=== PATIENT | male | born 1945 | race Caucasian/White ===

== ENCOUNTER → 2020-11-13 | Outpatient (CLI) | payer MEDICARE | END | disposition home or self-care (01) | LOC: LABWHC1 16:55 | PROVIDERS: ATTEND Internal Medicine | DX: Z20.822 Contact with and (suspected) exposure to COVID-19 (principal) | CPT/HCPCS: U0003; C9803 ==

== ENCOUNTER → 2022-07-25 | Outpatient (CLI) | payer MEDICARE | END | disposition home or self-care (01) | LOC: LABWHC1 14:30 | PROVIDERS: ATTEND Internal Medicine | DX: Z01.812 Encounter for preprocedural laboratory examination (principal) | CPT/HCPCS: 36415; 85730 ==

== ENCOUNTER → 2024-01-05 | Outpatient (CLI) | payer MEDICARE ==
--- NOTE | 2024-01-05 22:06 | CA ---
Transthoracic Echo Report Name: Matt Crabtree Age: 78 Gender: M : 1945 Exam Date: 01/05/2024 13:08 Exam Location: [facility] Ht (in): 69 Wt (lb): 190 Ordering Physician: Tavon Cast DO Attending/Referring Phys: Tavon Cast DO Drug Safety Physician Elo Hadleyrupa RDCS Procedure CPT: Indications: R01.1 Murmur Cardiac Hx: Technical Quality: Contrast 1: Total Dose (mL): Contrast 2: Total Dose (mL): MEASUREMENTS (Male / Female) Normal Values 2D ECHO LV Diastolic Diameter PLAX 4.7 cm 4.2 - 5.9 / 3.9 - 5.3 cm LV Systolic Diameter PLAX 2.9 cm IVS Diastolic Thickness 0.8 cm 0.6 - 1.0 / 0.6 - 0.9 cm LVPW Diastolic Thickness 1.3 cm 0.6 - 1.0 / 0.6 - 0.9 cm LV Relative Wall Thickness 0.4 LVOT Diameter 1.9 cm Aortic Root Diameter 2.5 cm LA Systolic Diameter LX 4.8 cm 3.0 - 4.0 / 2.7 - 3.8 cm LV Diastolic Volume MOD BP 59.9 cm??? 67 - 155 / 56 - 104 cm??? LV Systolic Volume MOD BP 25.4 cm??? - 58 / 19 - 49 cm??? LV Ejection Fraction MOD BP 57.6 % >= 55 % LV Cardiac Index MOD BP 1070.0 cm???/min???m??? LV Diastolic Volume MOD 4C 66.6 cm??? LV Systolic Volume MOD 4C 31.4 cm??? LV Ejection Fraction MOD 4C 52.8 % LV Cardiac Index MOD 4C 1088.2 cm???/min???m??? LV Diastolic Length 4C 6.6 cm LV Systolic Length 4C 5.6 cm LV Diastolic Volume MOD 2C 53.9 cm??? LV Systolic Volume MOD 2C 19.7 cm??? LV Ejection Fraction MOD 2C 63.4 % LV Cardiac Index MOD 2C 1059.6 cm???/min???m??? LV Diastolic Length 2C 6.6 cm LV Systolic Length 2C 5.2 cm LA Volume 65.8 cm??? 18 - 58 / 22 - 52 cm??? LA Volume Index 31.8 cm???/m??? 16 - 28 cm???/m??? DOPPLER AV Peak Velocity 168.0 cm/s AV Peak Gradient 11.3 mmHg AV Mean Velocity 115.9 cm/s AV Mean Gradient 5.9 mmHg AV Velocity Time Integral 33.7 cm AI Peak Velocity 400.9 cm/s AI Peak Gradient 64.3 mmHg AI Pressure Half Time 437.2 ms LVOT Peak Velocity 147.9 cm/s LVOT Peak Gradient 8.8 mmHg LVOT Velocity Time Integral 29.8 cm LVOT Stroke Volume 82.5 cm??? LVOT Stroke Volume Index 40.8 ml/m??? LVOT Cardiac Index 2553.7 cm???/min???m??? AV Area Cont Eq vti 2.4 cm??? AV Area Cont Eq pk 2.4 cm??? Mitral E Point Velocity 82.6 cm/s Mitral A Point Velocity 74.5 cm/s Mitral E to A Ratio 1.1 MV Deceleration Time 304.9 ms MV E' Velocity 8.5 cm/s Mitral E to MV E' Ratio 9.7 TR Peak Velocity 214.1 cm/s TR Peak Gradient 18.3 mmHg PV Peak Velocity 78.1 cm/s PV Peak Gradient 2.4 mmHg FINDINGS Left Ventricle Left ventricular ejection fraction is estimated at 50-55 %. Normal left ventricular wall motion. No obvious regional wall motion abnormalities. Right Ventricle Normal right ventricular size and function. Right ventricular systolic pressure estimated at 31.01 mmhg. Right Atrium Normal right atrial size. Left Atrium Mild left atrial dilatation. Mitral Valve Trace mitral regurgitation. Aortic Valve Mild aortic regurgitation. Tricuspid Valve Trace to mild tricuspid regurgitation. Pulmonic Valve Trace pulmonic regurgitation. Pericardium No pericardial effusion. Aorta Normal size aortic root. CONCLUSIONS Left ventricular ejection fraction is estimated at 50-55 %. No obvious regional wall motion abnormalities. Normal right ventricular size and function. RVSP 31 mmHg Mild left atrial dilatation. Previewed by: Dr Leander Roberts (Electronically Signed) Final Date: 05 January 2024 22:06
== END | disposition home or self-care (01) ==
LOC: RADECHMAIN 12:48
PROVIDERS: ATTEND Internal Medicine
DX: R01.1 Cardiac murmur, unspecified (principal)
CPT/HCPCS: 93306

== ENCOUNTER → 2024-04-16 | Outpatient (CLI) | payer MEDICARE ==
--- NOTE | 2024-04-16 12:04 | XR ---
EXAMINATION TYPE: XR Hip Complete LT DATE OF EXAM: 04/16/2024 11:46 AM INDICATION: Patient age:Male; 78 years old; Reason for study: M16.10 UNILATERAL PRIMARY OSTEOARTHRITIS, HIP; PHH. COMPARISON: None. TECHNIQUE: The left hip was examined in the frontal and lateral projections . FINDINGS: No acute fracture. No joint dislocation. There is joint space narrowing with marginal osteo phytic ptosis of the left hip. No significant soft tissue swelling. IMPRESSION: 1. No acute osseous pathology. 2. Moderate left hip osteoarthritic change.
== END | disposition home or self-care (01) ==
LOC: RADXRMAIN 11:30
PROVIDERS: ATTEND Internal Medicine
DX: M16.12 Unilateral primary osteoarthritis, left hip (principal)
CPT/HCPCS: 73502